=== PATIENT | female | born 1980 | race Caucasian/White ===

== ENCOUNTER 2017-09-10 08:39 | Emergency (ER) | payer BC, OTHER ==
[~2017-09-10] VITALS: Ht 154.9 cm; Wt 65.8 kg
[~2017-09-10 08:39] MED LIST: ACE3 PO; ACET-1966 PO; DOCU250C63 PO; FERR27TA3 PO; IBU600 PO; IBU800 PO; IBUP-56 PO; LACT1CAP9 PO; METH500T6 PO; PREN-67 PO
[2017-09-10] MEDS ORDERED: CHOL500050 PO (08:48)
--- NOTE | 2017-09-10 08:52 | ER Report ---
History and Physical Time Seen By MD: 08:51 Hx. of Stated Complaint: SORE THROAT, N/V, FEVER SINCE LAST EVENING. HPI/ROS CHIEF COMPLAINT: Sore throat, vomiting, fever HISTORY OF PRESENT ILLNESS: This is a 37 year old female. She has sore throat that started yesterday morning. Having nausea and vomiting today. Not eating or drinking much because of the pain. Fever since yesterday. No cough. No ear pain. No runny nose. No shortness of breath or chest pain. Aches and pains; feeling 'like run over by a truck'. normal bowel and bladder. No known sick contacts. Allergies: Coded Allergies: midazolam (Verified Allergy, Severe, 09/10/17) ketorolac (Verified Allergy, Mild, BRADYCARDIA , 09/10/17) Latex, Natural Rubber (Verified Allergy, Unknown, 09/10/17) Home Meds Active Scripts Ondansetron (ZOFRAN ODT) 4 Mg Tab.rapdis, 4 MG PO Q6H Y for NAUSEA/VOMITING, # 20 TAB.ERUM 0 Refills Prov:NILSON MALLOY MD 09/10/17 Hydrocodone Bit/Acetaminophen (HYDROCODON-ACETAMINOPHEN 5-325) 1 Each Tablet, 1 EACH PO Q4H Y for PAIN, #12 TAB 0 Refills Prov:NILSON MALLOY MD 09/10/17 Reported Medications Cholecalciferol (Vitamin D3) (Vitamin D) 50,000 Unit Capsule, 1 CAP PO QWEEK 09/10/17 Reviewed Nurses Notes: Yes Hx Smoking: No Smoking Status: Never Smoker Hx Alcohol Use: Yes Constitutional Vital Sign - Last 24 Hours 09/10/17 09/10/17 09/10/17 09/10/17 08:42 09:00 09:30 10:00 Temp 99.2 Pulse 92 75 Resp 18 B/P (MAP) 128/80 114/69 (84) 108/63 (78) 102/58 (73) Pulse Ox 90 99 O2 Delivery Room Air Intake and Output 09/10/17 09/10/17 09/11/17 15:00 23:00 07:00 Intake Total 1000 ml Balance 1000 ml Physical Exam General Appearance: The patient is alert. Acute distress because of pain. Eyes: Pupils are equal, round. No pallor, injection or icterus. ENT: Mucous membranes are moist. Normal oral mucosa. Posterior oropharynx erythematous with exudates and hypertrophy. Nasal mucosa very erythematous as well. Normal tympanic membranes and canals. Neck: Supple and non tender. Tender submandibular and anterior cervical lymphadenopathy. Respiratory: Breathing easily and unlabored. Lungs are clear to auscultation. Cardiovascular: Regular rate and rhythm. No murmurs, gallops or rubs. Normal capillary refill. Gastrointestinal: Abdomen is soft and non tender. Nondistended. Normal bowel sounds. Neurological: Alert and oriented x3. Skin: Warm and dry. No rashes. DIFFERENTIAL DIAGNOSIS: After history and physical exam, differential diagnosis was considered for sore throat and nausea and fever, no cough, suspect strep or possibly viral pharyngitis. Medical Decision Making Data Points Laboratory Hematology Test 09/10/17 08:50 Influenza Virus Type A (PCR) Negative (NEGATIVE) Influenza Virus Type B (PCR) Negative (NEGATIVE) Group A Streptococcus Screen Negative (NEGATIVE) Chemistry Test 09/10/17 08:50 Influenza Virus Type A (PCR) Negative (NEGATIVE) Influenza Virus Type B (PCR) Negative (NEGATIVE) Group A Streptococcus Screen Negative (NEGATIVE) ED Course/Re-evaluation Clinical Indication for ER IV: Hydration, IV Access ED Course IV started after my evaluation. Patient given Zofran 4mg IV and a liter of normal saline. Influenza and strep swabs obtained. Given Morphine 2mg IV for pain. Influenza and Strep negative. She feels quite a bit better. See instructions below. Decision to Disposition Date: Sep 10, 2017 Decision to Disposition Time: 10:24 Depart Departure Latest Vital Signs Vital Signs Date Time Temp Pulse Resp B/P (MAP) Pulse Ox O2 Delivery O2 Flow Rate FiO2 09/10/17 10:00 75 102/58 (73) 99 09/10/17 08:42 99.2 18 Room Air Impression: Primary Impression: Pharyngitis with viral syndrome Condition: Improved Disposition: HOME OR SELF-CARE Referrals: MILAN MATTA (PCP) New Scripts Ondansetron (ZOFRAN ODT) 4 Mg Tab.rapdis 4 MG PO Q6H Y for NAUSEA/VOMITING, #20 TAB.ERUM 0 Refills Prov: NILSON MALLOY MD 09/10/17 Hydrocodone Bit/Acetaminophen (HYDROCODON-ACETAMINOPHEN 5-325) 1 Each Tablet 1 EACH PO Q4H Y for PAIN, #12 TAB 0 Refills Prov: NILSON MALLOY MD 09/10/17 Patient Instructions: Pharyngitis (ED) Additional Instructions: Rest and increase fluid intake. Take Ibuprofen 200mg over the counter tablets, take 4 tablets every 8 hours as needed for pain. Lortab 5/325, one every 4 hours as needed for severe pain. Zofran 4mg, one every 6 hours as needed for nausea or vomiting. You can try Magic mouthwash, 1 teaspoon swish gargle and swallow every 4-6 hours as needed for sore throat pain. NILSON MALLOY MD Sep 10, 2017 08:52
[2017-09-10] MEDS ORDERED: ONDANSETRON 4 MG/2 ML VIAL IVP ONE (08:55)
[2017-09-10] MEDS ORDERED: NS(*) 0.9% 1000 ML BAG 1,000 ML IV ONE ×2 (09:00)
[2017-09-10] MEDS ORDERED: KETOROLAC 30 MG/ML VIAL IVP ONE (09:00)
[2017-09-10] MEDS ORDERED: MORPHINE 2 MG/ML SYR IVP ONE (09:05)
[2017-09-10 10:00] VITALS: BP 102/58
[2017-09-10] MEDS ORDERED: ONDA4TAB PO (10:25)
[2017-09-10] MEDS ORDERED: LOR5/325 PO (10:25)
== END 2017-09-10 10:30 | disposition home or self-care (01) ==
LOC: ER 09:11
DX: B34.9 Viral infection, unspecified (principal); J02.9 Acute pharyngitis, unspecified
CPT/HCPCS: 87081; 87502; 87880; 96361; 96374; 96375; 99284; J2270; J2405; J7030

== ENCOUNTER 2018-09-08 22:27 | Emergency (ER) | payer BC, OTHER ==
[~2018-09-08 22:27] MED LIST changes: +CHOL500050 PO; +LOR5/325 PO; +ONDA4TAB PO
--- NOTE | 2018-09-08 22:30 | ER Report ---
History and Physical Time Seen By MD: 22:30 HPI/ROS CHIEF COMPLAINT: Persistent cough HISTORY OF PRESENT ILLNESS: 38-year-old female presents with 2 weeks of persistent cough. She was diagnosed with influenza A approximately 2 weeks ago. Her children have been sick with viral syndrome. She's been exposed to numerous sick contacts. Patient notes a dry cough. It's nonproductive. She's had no fevers. She notes no sinus drainage or postnasal drip. She denies GERD symptoms. Patient is concerned she may have pneumonia. REVIEW OF SYSTEMS: Respiratory: As above Cardiovascular: No chest pain, no palpitations. Gastrointestinal: No vomiting, no abdominal pain. Musculoskeletal: No back pain. Allergies: Coded Allergies: midazolam (Verified Allergy, Severe, 09/08/18) ketorolac (Verified Allergy, Mild, BRADYCARDIA , 09/08/18) Latex, Natural Rubber (Verified Allergy, Unknown, 09/08/18) Home Meds Active Scripts Prednisone (PREDNISONE) 20 Mg Tablet, 20 MG PO QDAY for reduce lung inflammation, #6 2 by mouth daily for 2 days then 1 by mouth daily for 2 days Prov:SUNDAY THORNTON DO 09/08/18 Cefuroxime Axetil (CEFUROXIME) 500 Mg Tablet, 500 MG PO BID for infection, #14 TAB Prov:SUNDAY THORNTON DO 09/08/18 Discontinued Reported Medications Cholecalciferol (Vitamin D3) (Vitamin D) 50,000 Unit Capsule, 1 CAP PO QWEEK 09/10/17 Discontinued Scripts Ondansetron (ZOFRAN ODT) 4 Mg Tab.rapdis, 4 MG PO Q6H PRN for NAUSEA/VOMITING, #20 TAB.ERUM 0 Refills Prov:NILSON MALLOY MD 09/10/17 Hydrocodone Bit/Acetaminophen (HYDROCODON-ACETAMINOPHEN 5-325) 1 Each Tablet, 1 EACH PO Q4H PRN for PAIN, #12 TAB 0 Refills Prov:NILSON MALLOY MD 09/10/17 Reviewed Nurses Notes: Yes Old Medical Records Reviewed: Yes Hx Smoking: No Smoking Status: Never Smoker Hx Alcohol Use: Yes Constitutional Vital Sign - Last 24 Hours 09/08/18 09/08/18 09/08/18 09/08/18 22:42 22:42 22:46 22:48 Temp 97.9 Pulse 90 ??? Resp 16 B/P (MAP) 158/120 158/120 (133) 129/74 (92) Pulse Ox 90 O2 Delivery Room Air 09/08/18 09/08/18 09/08/18 09/08/18 22:57 23:00 23:12 23:27 Pulse 77 ??? 82 B/P (MAP) 115/82 (93) Pulse Ox 95 92 09/08/18 09/08/18 09/08/18 09/09/18 23:30 23:42 23:47 00:00 Pulse 70 70 B/P (MAP) 77/42 (54) 107/68 (81) Pulse Ox 93 92 Physical Exam Vital signs stable, pulse ox normal General Appearance: The patient is alert, has no immediate need for airway protection and no current signs of toxicity. Persistent dry cough HEENT: Pupils equal and round no injection. TMs normal, oropharynx moderate erythema, no exudate or petechiae Respiratory: Chest is non tender, lungs are clear to auscultation. No wheezing or rails Cardiac: regular rate and rhythm Gastrointestinal: Abdomen is soft and non tender, no masses, bowel sounds normal. Musculoskeletal: Neck: Neck is supple and non tender. No lymphadenopathy, no JVD Extremities have full range of motion and are non tender. No edema, no calf tenderness Skin: No rashes or lesions. DIFFERENTIAL DIAGNOSIS: After history and physical exam differential diagnosis was considered for mycoplasmal pneumonia, pneumonia, bronchitis, bronchiolitis, GERD, postnasal drip, sinusitis, reactive airways disease Medical Decision Making Data Points Laboratory Hematology Test 09/08/18 22:51 Influenza Virus Type A (PCR) Negative (NEGATIVE) Influenza Virus Type B (PCR) Negative (NEGATIVE) Chemistry Test 09/08/18 22:51 Influenza Virus Type A (PCR) Negative (NEGATIVE) Influenza Virus Type B (PCR) Negative (NEGATIVE) EKG/Imaging Imaging X-ray: Two-view chest x-ray was obtained. I viewed the images myself on the PACS system. My interpretation of the images is: No infiltrate, no effusion, normal mediastinum. The radiologist interpretation had no clinically significant variation from this interpretation. ED Course/Re-evaluation ED Course Patient's admitted to an examination room. H&P is done. The differential diagnoses was considered. Patient with persistent cough for several weeks. She did have influenza approximately 2 weeks ago. Patient's cough has persisted. She is afraid she has pneumonia. Patient denies GERD symptoms. She denies sinus symptoms. Chest x-ray is performed which is unremarkable. Rapid influenza is negative. Patient's treated with an albuterol neb, Phenergan, and hydrocodone. Her pulse ox is normal. Patient will be treated for infection and inflammatory causes. She'll be given a course of Ceftin antibiotic and predniso ne taper. Patient strongly desires to go visit her sister, who is on hospice and comfort care. She is afraid she might infect her. Decision to Disposition Date: Sep 08, 2018 Decision to Disposition Time: 23:33 Depart Departure Latest Vital Signs Vital Signs Date Time Temp Pulse Resp B/P (MAP) Pulse Ox O2 Delivery O2 Flow Rate FiO2 09/09/18 00:00 107/68 (81) 09/08/18 23:47 70 92 09/08/18 22:42 97.9 16 Room Air Impression: Primary Impression: Persistent cough Additional Impression: Upper respiratory infection Condition: Improved Disposition: HOME OR SELF-CARE Referrals: LUIS CAMACHO DO (PCP) New Scripts Prednisone (PREDNISONE) 20 Mg Tablet 20 MG PO QDAY for reduce lung inflammation, #6 2 by mouth daily for 2 days then 1 by mouth daily for 2 days Prov: SUNDAY THORNTON DO 09/08/18 Cefuroxime Axetil (CEFUROXIME) 500 Mg Tablet 500 MG PO BID for infection, #14 TAB Prov: SUNDAY THORNTON DO 09/08/18 Patient Instructions: Upper Respiratory Infection (ED) Additional Instructions: Take medications as prescribed Use take DayQuil, in the morning in the afternoon and NyQuil at bedtime Problem Qualifiers Additional Impression: Upper respiratory infection URI type: unspecified URI Qualified Codes: J06.9 - Acute upper respiratory infection, unspecified SUNDAY THORNTON DO Sep 08, 2018 22:30
[2018-09-08] MEDS ORDERED: APAP/HYDROCODONE 325/5 TAB PO ONE (22:50)
[2018-09-08] MEDS ORDERED: PROMETHAZINE HCL 25 MG TAB PO ONE (22:50)
[2018-09-08] MEDS ORDERED: PRED20TA6 PO (23:35)
[2018-09-08] MEDS ORDERED: CEFU500T10 PO (23:35)
[2018-09-08] MEDS ORDERED: CEFUROXIME AXETIL 250 MG TAB PO ONE (23:40)
[2018-09-08] MEDS ORDERED: ALBUTEROL 8 GM INHALER INH ONE (23:40)
[2018-09-08] MEDS ORDERED: predniSONE 20 MG TAB PO ONE (23:40)
--- NOTE | 2018-09-08 23:44 | RADIOLOGY IMAGING REPORT ---
FACILITY: [facility] PATIENT NAME: Amber Canseco : 1980 MR: [id number] V: [id number] EXAM DATE: ORDERING PHYSICIAN: SUNDAY THORNTON TECHNOLOGIST: Location: [facility] [place] Patient: Amber Canseco : 1980 Visit/Account:[id number] Date of Sevice: 09/08/2018 CHEST PA LAT HISTORY: Cough and chest pain for 2 days. Ill for 2 weeks. Exposure to influenza A. COMPARISON: None. TECHNIQUE: PA and lateral views of the chest. FINDINGS: Pulmonary/pleura: Lungs are clear. There is no pneumothorax or pleural effusion. Cardiomediastinal: Cardiac and mediastinal silhouettes are within normal limits. Bones/soft tissues: No acute osseous abnormality. The visible abdomen is normal. IMPRESSION: 1. No acute cardiopulmonary process. Report Dictated By: Celena Ryder at 09/08/2018 11:37 PM Report E-Signed By: Celena Ryder at 09/08/2018 11:38 PM WSN:[id number]
[2018-09-08] MEDS ORDERED: ACET/HYDROC 5/325MG TH ER ONLY 2 TAB/BOTTLE PO ONE (23:50)
[2018-09-08] MEDS ORDERED: PROMETHAZINE HCL 25 MG TAB TH 2 TAB/BOTTLE PO ONE (23:50)
[2018-09-09] VITALS: BP 107/68
== END 2018-09-08 23:50 | disposition home or self-care (01) ==
LOC: ER 22:54
DX: J06.9 Acute upper respiratory infection, unspecified (principal)
CPT/HCPCS: 71046; 87502; 94640; 99283; J3535; J7512; Q0169